=== PATIENT | female | born 1990 | race Caucasian/White ===

== ENCOUNTER → 2016-12-28 | Outpatient (CLI) | payer OTHER | LOC: COL.RAD 12:00 | DX: E28.2 Polycystic ovarian syndrome (principal) ==

== ENCOUNTER 2018-10-21 14:42 | Outpatient (CLI) | payer BC, OTHER ==
[~2018-10-21] VITALS: Ht 170.2 cm; Wt 71.4 kg
--- NOTE | 2018-10-21 14:45 | NUR ---
Pt arrives on unit ambulatory for possible SROM. States "clear white discharge last night and this morning." Denies regular ctx and vaginal bleeding. Reports good movement. EFM and toco applied. VSS. Amniotest negative. SVE per this RN CL/TH/HI. BOWI. No fluid noted on glove. Admission assessment completed. Reactive FHR strip obtained. Dr. Guillen notified of pt status. Orders to discharge. Discharge instructions given. No questions or concerns at this time. Pt taken off monitors. Leaves unit ambulatory.
[2018-10-21] MEDS ORDERED: PRENATAL MVI (14:57)
[2018-10-21] MEDS ORDERED: MACROBID 1100 MG/CAP PO (14:58)
[2018-10-21 15:15] VITALS: BP 137/66; PULSE 85; TEMP 98.1
== END 2018-10-21 15:15 | disposition home or self-care (01) ==
LOC: LDRO 14:42 → LDR 14:45 → LDRO 15:15
DX: Z34.93 Encounter for supervision of normal pregnancy, unspecified, third trimester (principal); Z3A.34 34 weeks gestation of pregnancy
CPT/HCPCS: OP

== ENCOUNTER 2018-11-25 06:48 | Inpatient (IN) | payer BC, OTHER ==
[~2018-11-25] VITALS: Ht 172.7 cm; Wt 72.7 kg
[2018-11-25] VITALS (69 sets, daily range): BP systolic 117–173; BP diastolic 55–85; PULSE 60–87; TEMP 98.2–98.9
[~2018-11-25 06:48] MED LIST: MACROBID 1100 MG/CAP PO; PRENATAL MVI
--- NOTE | 2018-11-25 06:55 | NUR ---
0655- Pt arrives on unit ambulatory for scheduled induction. Pt into bathroom, changed into gown. 0701- Pt into bed, EFM and TOCO on and tracing. Pt denies concerns or complications. Assessment completed. Consent forms signed. Induction explained and questions answered.
[2018-11-25] MEDS ORDERED: FERROUS SU325 MG/TAB PO (07:08)
[2018-11-25 07:53] LABS: BASO % 0.4 % (0.0-2.0); EOS # 0.1 (0.0-0.7); EOS % 0.9 % (0-4.0); GRAN # 7.7 (1.4-6.5); GRAN % 69.9 % (42.2-75.2); HEMOGLOBIN 11.7 g/dl (12.5-16.0); LYMPH % 18.3 % (20.0-51.0); MEAN CELL VOLUME 96 fl (80.0-100.0); MEAN CORPUSCULAR HEMOGLOBIN 33 pg (27.0-31.0); MEAN CORPUSCULAR HGB CONC 34 g/dl (33.0-37.0); MONO % 9.2 % (1.7-9.3); PLATELET COUNT 219 K/mm3 (130-400); RED BLOOD COUNT 3.59 M/mm3 (4.10-5.30); REDCELL DISTRIBUTION WIDTH-CV 12.4 % (11.5-14.5)
[2018-11-25 07:54] LABS: HEMATOCRIT 34.3 % (37.0-47.0)
--- NOTE | 2018-11-25 18:15 | NUR ---
175- SVE by this RN. Pt repositioned to LL with right leg up on stirrup. 1799- FHR late decels noted. 1804- Fluid bolus, Pt repositioned to RL. Pitocin off. 1814- Report given to Ana Avalos RN. Pt repositioned to sitting upright. Dr Araiaz called and updated, see physician notification.
[2018-11-26] VITALS (31 sets, daily range): BP systolic 98–169; BP diastolic 46–103; PULSE 71–121; TEMP 97.6–99.4
--- NOTE | 2018-11-26 | NUR ---
SVE /+1. Pt educated on pushing techniques. Pt positioned into footplates. Initial push at 0005.
--- NOTE | 2018-11-26 00:45 | NUR ---
Pt pushing with good maternal effort. Cabrera catheter removed at this time. 350 mL of clear yellow urine.
--- NOTE | 2018-11-26 01:45 | NUR ---
Pt continues to push with good maternal effort.
--- NOTE | 2018-11-26 02:45 | NUR ---
Pt pushing with good maternal effort. Recurrent variable decelerations noted with pushes with spontaneous return to baseline after pushing. Dr. Araiza updated on pushing progress at this time. See physician notification.
--- NOTE | 2018-11-26 03:10 | NUR ---
Dr. Araiza at bedside evaluating pushing efforts and progress. Pt and spouse educated on risks and benefits at this time and are agreeable to proceed with a section. Flavia Berger CRNA notified. Nursery notified.
--- NOTE | 2018-11-26 03:20 | NUR ---
Incision site and mons clipped. Hibiclens to abdomen. New martinez catheter placed. SCD's applied. 0330 - Pt off monitors and transferred to OR by labor bed. 0335 - No FHTs obtained in OR per Dr. Bradford.
[2018-11-26 04:31] LABS: HEMOGLOBIN 10.3 g/dl (12.5-16.0)
[2018-11-26 04:32] LABS: HEMATOCRIT 30.3 % (37.0-47.0)
[2018-11-26 07:21] LABS: MEAN CELL VOLUME 98 fl (80.0-100.0); MEAN CORPUSCULAR HGB CONC 33 g/dl (33.0-37.0); MEAN PLATELET VOLUME 10.7 fl (7.4-10.4); PLATELET COUNT 160 K/mm3 (130-400); RED BLOOD COUNT 2.97 M/mm3 (4.10-5.30); REDCELL DISTRIBUTION WIDTH-CV 12.6 % (11.5-14.5)
[2018-11-26 07:25] LABS: HEMOGLOBIN 9.7 g/dl (12.5-16.0); MEAN CORPUSCULAR HEMOGLOBIN 33 pg (27.0-31.0)
[2018-11-26 09:09] LABS: BAND 26 % (0-10); LYMPHOCYTE 4 % (20.0-51.0); NEUTROPHILS 64 % (42.0-75.2); PLATELET ESTIMATE NORMAL (NORMAL)
--- NOTE | 2018-11-26 14:40 | NUR ---
Patient assisted to edge of bed and feet dangled. Ambulates to bathroom with standby assist x2. Patient sits on toilet and martinez catheter removed/patient tolerates well. Pericare done, Epidural catheter removed, new gown/undies/pad on. Patient back to bed. Plan of care discussed.
[2018-11-27 06:00] LABS: MEAN CELL VOLUME 98 fl (80.0-100.0); MEAN CORPUSCULAR HGB CONC 33 g/dl (33.0-37.0); MEAN PLATELET VOLUME 10.9 fl (7.4-10.4); PLATELET COUNT 146 K/mm3 (130-400); RED BLOOD COUNT 2.71 M/mm3 (4.10-5.30)
[2018-11-27 06:01] LABS: HEMATOCRIT 26.6 % (37.0-47.0); HEMOGLOBIN 8.7 g/dl (12.5-16.0); MEAN CORPUSCULAR HEMOGLOBIN 32 pg (27.0-31.0)
[2018-11-27 08:28] VITALS: BP 119/64; PULSE 80; TEMP 97.6
[2018-11-27 08:58] LABS: BAND 12 % (0-10); EOSINOPHIL 2 % (0-4); LYMPHOCYTE 5 % (20.0-51.0); NEUTROPHILS 74 % (42.0-75.2); PLATELET ESTIMATE DECREASED (NORMAL)
[2018-11-27 21:00] VITALS: BP 129/64; PULSE 92; TEMP 98.7
[2018-11-28 07:30] VITALS: BP 132/62; PULSE 86; TEMP 97.5
--- NOTE | 2018-11-28 11:39 | NUR ---
Initial visit; Parents thanked for offering congratulations for the of their son. thanked parents for choosing [place]/[facility].
[2018-11-28 16:40] VITALS: BP 130/54; PULSE 72; TEMP 98.1
[2018-11-28 22:05] VITALS: BP 126/60; PULSE 85
[2018-11-29] VITALS (10 sets, daily range): BP systolic 122–150; BP diastolic 55–80; PULSE 62–86; TEMP 97.4–99
[2018-11-29] MEDS ORDERED: FERROUS SU325 MG/TAB PO (10:57)
[2018-11-29] MEDS ORDERED: IBU600 MG PO (10:58)
[2018-11-29] MEDS ORDERED: PERCOCET 325 MG1 TA2 PO (10:58)
[2018-11-29 11:09] LABS: MEAN CELL VOLUME 99 fl (80.0-100.0); MEAN CORPUSCULAR HGB CONC 33 g/dl (33.0-37.0); MEAN PLATELET VOLUME 10.3 fl (7.4-10.4); PLATELET COUNT 216 K/mm3 (130-400); RED BLOOD COUNT 2.28 M/mm3 (4.10-5.30); REDCELL DISTRIBUTION WIDTH-CV 12.6 % (11.5-14.5)
[2018-11-29 11:11] LABS: HEMATOCRIT 22.5 % (37.0-47.0); HEMOGLOBIN 7.4 g/dl (12.5-16.0); MEAN CORPUSCULAR HEMOGLOBIN 32 pg (27.0-31.0)
--- NOTE | 2018-11-29 14:28 | NUR ---
1400 1ST BAG PRBC'S STARTED AT THIS TIME.#[id number]. VITAL SIGNS WNL. JESÚS LE RN AT BEDSIDE FOR 2ND NURSE VERIFICATION. BLOOD STARTED AT 50CC/HR. 1417 VS WNL. PATIENT DENIES NEEDS AT THIS TIME, BLOOD RATE INCREASED TO 200CC/HR
[2018-11-30 07:07] LABS: MEAN CORPUSCULAR HGB CONC 33 g/dl (33.0-37.0); MEAN PLATELET VOLUME 10.3 fl (7.4-10.4); PLATELET COUNT 243 K/mm3 (130-400); RED BLOOD COUNT 2.93 M/mm3 (4.10-5.30); REDCELL DISTRIBUTION WIDTH-CV 15.1 % (11.5-14.5)
[2018-11-30 07:11] LABS: MEAN CELL VOLUME 92 fl (80.0-100.0); MEAN CORPUSCULAR HEMOGLOBIN 31 pg (27.0-31.0)
[2018-11-30 07:30] VITALS: BP 140/66; PULSE 67; TEMP 97.6
[2018-11-30 09:05] VITALS: BP 134/65; PULSE 77
--- NOTE | 2018-11-30 10:02 | NUR ---
Follow-up visit; Parents thanked Assistant General Manager for looking in on them and offering congratulations and God's blessings.
--- NOTE | 2018-11-30 10:10 | NUR ---
Patient given discharge orders, agrees and understands, and signs papers. Questions answered. 1115: Patient off unit with spouse and this RN per Wheelchair.
== END 2018-11-30 11:15 | disposition home or self-care (01) | DRG 786 ==
LOC: OB 06:48 → LDR 06:48 → OB 11-26 04:26
PROVIDERS: Student in an Organized Health Care Education/Training Program; ADMIT Obstetrics & Gynecology
PROC: 3E033VJ Introduction of Other Hormone into Peripheral Vein, Percutaneous Approach (ICD-10-PCS; 2018-11-25)
PROC: 10D00Z1 Extraction of Products of Conception, Low, Open Approach (ICD-10-PCS; principal; 2018-11-26)
PROC: 0UQ90ZZ Repair Uterus, Open Approach (ICD-10-PCS; 2018-11-26)
DX: O36.63X0 Maternal care for excessive fetal growth, third trimester, not applicable or unspecified (principal); O71.1 Rupture of uterus during labor; D62 Acute posthemorrhagic anemia; Z3A.39 39 weeks gestation of pregnancy; Z37.0 Single live birth; O99.284 Endocrine, nutritional and metabolic diseases complicating childbirth; E28.2 Polycystic ovarian syndrome; O62.1 Secondary uterine inertia; N80.0 Endometriosis of uterus; O76 Abnormality in fetal heart rate and rhythm complicating labor and delivery; O75.89 Other specified complications of labor and delivery; Z88.1 Allergy status to other antibiotic agents; O90.81 Anemia of the puerperium
CPT/HCPCS: J0690; J1885; J1940; J2175; J2210; J2270; J2370; J2405; J2590; J2795; J7120; P9016

== ENCOUNTER 2021-09-22 08:19 | Inpatient (IN) | payer OTHER ==
[~2021-09-22] VITALS: Ht 170.2 cm; Wt 77.7 kg
[~2021-09-22 08:19] MED LIST changes: +FERROUS SU325 MG/TAB PO; +IBU600 MG PO; +PERCOCET 325 MG1 TA2 PO
[2021-09-23] VITALS (19 sets, daily range): BP systolic 98–145; BP diastolic 52–89; PULSE 62–80; TEMP 97.7–98.4
--- NOTE | 2021-09-23 05:20 | NUR ---
Pt here for scheduled . Pt ambulatory to 213. Clean gown on. EFM and TOCO explained and applied. Pt denies contractions, leaking of fluids or vaginal bleeding. Reports good movement. Plan of care explained to pt and spouse.
[2021-09-23] MEDS ORDERED: PRENATAL TABLET PO (06:24)
[2021-09-23] MEDS ORDERED: TUMS ULTRA1000 MG PO (06:24)
[2021-09-23 06:42] LABS: BASO % 0.4 % (0.0-2.0); EOS # 0.1 K/mm3 (0.0-0.7); EOS % 1.2 % (0.0-4.0); GRAN # 5.4 K/mm3 (1.4-6.5); GRAN % 56.9 % (42.2-75.2); HEMOGLOBIN 12.1 g/dl (12.5-16.0); LYMPH # 2.9 K/mm3 (1.2-3.4); LYMPH % 31.1 % (20.0-51.0); MEAN CELL VOLUME 91 fl (80.0-100.0); MEAN CORPUSCULAR HEMOGLOBIN 31 pg (27-31); MEAN CORPUSCULAR HGB CONC 35 g/dl (33.0-37.0); MEAN PLATELET VOLUME 11.4 fl (7.4-10.4); MONO # 0.9 K/mm3 (0.1-0.6); MONO % 9.5 % (1.7-9.3); PLATELET COUNT 219 K/mm3 (130-400); RED BLOOD COUNT 3.85 M/mm3 (4.10-5.30); REDCELL DISTRIBUTION WIDTH-CV 13.2 % (11.5-14.5)
[2021-09-23 06:46] LABS: HEMATOCRIT 34.9 % (37.0-47.0)
--- NOTE | 2021-09-23 10:47 | NUR ---
REPORT TAKEN FROM Dave SLATER RN AND PETR ECKERT
--- NOTE | 2021-09-23 19:00 | NUR ---
PT C/O 10/10 PAIN IN PERINEUM/UTERUS AREA. PT AMBULATED TO BATHROOM, SUCESSFUL VOID WITH KUMQUAT SIZED CLOT, PT AMBULATED BACK TO BED, SLIGHTLY UNSTEADY ON FEET BUT STABLE. PT REPORTED PAIN DOWN TO 6/10 AT RESTING.
[2021-09-24 03:56] VITALS: BP 122/64; PULSE 77; TEMP 97.9
[2021-09-24 08:30] VITALS: BP 114/63; PULSE 79; TEMP 98.5
--- NOTE | 2021-09-24 09:35 | NUR ---
Initial visit; Parents thanked De Icer for offering congratulations and God's blessings for the of their son. [email or web address] family for choosing [place].
[2021-09-24 16:45] VITALS: BP 125/58; PULSE 70; TEMP 98.1
[2021-09-24 20:00] VITALS: BP 122/56; PULSE 68; TEMP 98.5
[2021-09-25 07:00] VITALS: BP 135/74; PULSE 70; TEMP 97.8
[2021-09-25] MEDS ORDERED: MOTRIN 800800 MG/TAB PO (08:39)
[2021-09-25] MEDS ORDERED: PERCOCET 325 MG1 TA2 PO (08:39)
[2021-09-25 19:35] VITALS: BP 99/81; PULSE 85; TEMP 97.9
[2021-09-26 07:40] VITALS: BP 120/74; PULSE 85; TEMP 97.5
[2021-09-26 09:30] VITALS: BP 132/69; PULSE 80; TEMP 98
== END 2021-09-26 12:15 | disposition home or self-care (01) | DRG 788 ==
LOC: OB 09-23 05:16 → LDR 09-23 08:18 → OB 09-26 12:15
PROVIDERS: ADMIT Obstetrics & Gynecology
PROC: 10D00Z1 Extraction of Products of Conception, Low, Open Approach (ICD-10-PCS; principal; 2021-09-23)
PROC: 0DNW0ZZ Release Peritoneum, Open Approach (ICD-10-PCS; 2021-09-23)
PROC: 3E0M05Z Introduction of Adhesion Barrier into Peritoneal Cavity, Open Approach (ICD-10-PCS; 2021-09-23)
DX: O34.211 Maternal care for low transverse scar from previous cesarean delivery (principal); Z37.0 Single live birth; O99.02 Anemia complicating childbirth; D64.9 Anemia, unspecified; O99.892 Other specified diseases and conditions complicating childbirth; N73.6 Female pelvic peritoneal adhesions (postinfective); Z3A.39 39 weeks gestation of pregnancy
CPT/HCPCS: J1580; J1885; J2405; J2590; J3010; J7120